=== PATIENT | male | born 1940 | race Caucasian/White ===

== ENCOUNTER 2016-09-13 12:44 | Outpatient (CLI) | payer MEDICARE | END 2016-09-13 12:45 | disposition home or self-care (01) | DX: N18.9 Chronic kidney disease, unspecified (principal); R20.9 Unspecified disturbances of skin sensation ==

== ENCOUNTER 2016-10-26 08:00 | Outpatient (CLI) | payer MEDICARE | END 2016-10-26 08:01 | disposition home or self-care (01) | DX: E53.8 Deficiency of other specified B group vitamins (principal) ==

== ENCOUNTER 2016-12-22 08:40 | Day surgery (SDC) | payer MEDICARE ==
[2016-12-22] MEDS ORDERED: LACTATED RINGERS 1,000 ML IV ONE (09:34)
[2016-12-22] MEDS ORDERED: MIDAZOLAM 2 MG/2 ML VIAL IVP ONE (10:20)
[2016-12-22] MEDS ORDERED: fentaNYL 100 MCG/2 ML VIAL IVP ONE (10:20)
[2016-12-22 11:16] VITALS: BP 100/60
== END 2016-12-22 08:41 | disposition home or self-care (01) ==
LOC: SDS 08:40
PROVIDERS: ATTEND Surgery
PROC: 0DBN8ZZ Excision of Sigmoid Colon, Via Natural or Artificial Opening Endoscopic (ICD-10-PCS; principal; 2016-12-22 10:00)
DX: K62.5 Hemorrhage of anus and rectum (principal); D12.5 Benign neoplasm of sigmoid colon; K62.1 Rectal polyp; K64.8 Other hemorrhoids; D64.9 Anemia, unspecified; I10 Essential (primary) hypertension; E78.5 Hyperlipidemia, unspecified; K21.9 Gastro-esophageal reflux disease without esophagitis
CPT/HCPCS: 45380; 88305; J7120

== ENCOUNTER 2017-01-31 07:54 | Outpatient (CLI) | payer MEDICARE | END 2017-01-31 07:55 | disposition home or self-care (01) | LOC: LAB.WCP 07:54 | PROVIDERS: ATTEND Urology | DX: R97.20 Elevated prostate specific antigen [PSA] (principal) | CPT/HCPCS: 36415; 84153 ==

== ENCOUNTER 2017-03-01 07:43 | Outpatient (CLI) | payer MEDICARE ==
[2017-03-01 12:42] LABS: BASOPHILS % (AUTO) 0.5 %; EOSINOPHILS # (AUTO) 0.2 10^3/uL (0.0-0.7); EOSINOPHILS % (AUTO) 2.2 %; HCT - HEMATOCRIT 33.8 % (42.0-52.0); HGB - HEMOGLOBIN 11.5 g/dL (14.0-18.0); LYMPHOCYTES # (AUTO) 2.1 10^3/uL (1.5-3.5); LYMPHOCYTES % (AUTO) 30.6 %; MEAN CORPUSCULAR HEMOGLOBIN 29.3 pg (27.0-31.0); MEAN CORPUSCULAR HGB CONC 33.8 g/dL (32.0-36.0); MEAN CORPUSCULAR VOLUME 86.6 fL (80.0-94.0); MEAN PLATELET VOLUME 8.4 fL (7.4-11.4); MONOCYTES # (AUTO) 0.5 10^3/uL (0.0-1.0); MONOCYTES % (AUTO) 7.1 %; NEUTROPHILS # (AUTO) 4.1 10^3/uL (1.5-6.6); NEUTROPHILS % (AUTO) 59.6 %; RED BLOOD COUNT 3.91 10^6/uL (4.70-6.10); RED CELL DISTRIBUTION WIDTH 14.1 % (12.0-15.0); UNCORRECTED WHITE BLOOD COUNT 6.8 x10^3/uL; WHITE BLOOD COUNT 6.8 x10^3/uL (4.8-10.8)
[2017-03-01 12:55] LABS: CALCIUM 8.4 mg/dL (8.5-10.3); CREATININE 1.5 mg/dL (0.6-1.2)
== END 2017-03-01 07:44 | disposition home or self-care (01) ==
LOC: LAB.WCP 07:43
PROVIDERS: ATTEND Physician Assistant Medical
DX: N18.9 Chronic kidney disease, unspecified (principal); E53.8 Deficiency of other specified B group vitamins; K62.5 Hemorrhage of anus and rectum
CPT/HCPCS: 36415; 80048; 82607; 85025

== ENCOUNTER 2017-03-28 09:24 | Outpatient (CLI) | payer MEDICARE ==
[2017-03-28 17:38] LABS: IRON 32 ug/dL (45-182); TOTAL IRON BINDING CAPACITY 354 ug/dL (250-450); TRANSFERRIN 253 mg/dL (180-329)
[2017-03-28 17:39] LABS: FERRITIN 9.7 ng/mL (23.9-336.2)
[2017-03-28 17:43] LABS: FOLATE 20.44 ng/mL (5.90 - >24.8)
== END 2017-03-28 09:25 | disposition home or self-care (01) ==
LOC: LAB.WCP 09:24
PROVIDERS: ATTEND Physician Assistant Medical
DX: D64.9 Anemia, unspecified (principal)
CPT/HCPCS: 36415; 82728; 82746; 83540; 84466

== ENCOUNTER 2017-05-26 14:51 | Outpatient (CLI) | payer MEDICARE ==
[2017-05-26 12:18] LABS: BASOPHILS % (AUTO) 0.7 %; EOSINOPHILS # (AUTO) 0.2 10^3/uL (0.0-0.7); EOSINOPHILS % (AUTO) 3.6 %; HCT - HEMATOCRIT 39.2 % (42.0-52.0); HGB - HEMOGLOBIN 13.3 g/dL (14.0-18.0); LYMPHOCYTES # (AUTO) 1.8 10^3/uL (1.5-3.5); MEAN CORPUSCULAR HEMOGLOBIN 28.8 pg (27.0-31.0); MEAN CORPUSCULAR HGB CONC 33.9 g/dL (32.0-36.0); MEAN CORPUSCULAR VOLUME 84.9 fL (80.0-94.0); MEAN PLATELET VOLUME 8.7 fL (7.4-11.4); MONOCYTES # (AUTO) 0.5 10^3/uL (0.0-1.0); MONOCYTES % (AUTO) 8.6 %; NEUTROPHILS # (AUTO) 3.2 10^3/uL (1.5-6.6); NEUTROPHILS % (AUTO) 56.1 %; NUCLEATED RED BLOOD CELLS AUTO 0.1 /100WBC; RED BLOOD COUNT 4.62 10^6/uL (4.70-6.10); RED CELL DISTRIBUTION WIDTH 14.6 % (12.0-15.0); UNCORRECTED WHITE BLOOD COUNT 5.7 x10^3/uL; WHITE BLOOD COUNT 5.7 x10^3/uL (4.8-10.8)
[2017-05-26 12:48] LABS: FERRITIN 28.5 ng/mL (23.9-336.2)
[2017-05-26 12:56] LABS: BILIRUBIN,TOTAL 0.2 mg/dL (0.2-1.0); BUN - BLOOD UREA NITROGEN 19 mg/dL (6-20); CALCIUM 8.2 mg/dL (8.5-10.3); CARBON DIOXIDE - CO2 24 mmol/L (21-32); CHLORIDE 109 mmol/L (101-111); CHOL/HDL RATIO 6.5 (<5.0); CHOLESTEROL 188 mg/dL; CREATININE 1.4 mg/dL (0.6-1.2); GFR - MDRD 50 (>89); GLUCOSE 100 mg/dL (70-100); HDL CHOLESTEROL 29 mg/dL; IRON 37 ug/dL (45-182); LDL/HDL RATIO 4.7 (<3.6); SODIUM 138 mmol/L (135-145); TOTAL IRON BINDING CAPACITY 277 ug/dL (250-450); TOTAL PROTEIN 6.7 g/dL (6.7-8.2); TRANSFERRIN 198 mg/dL (180-329); TRIGLYCERIDES 117 mg/dL; VLDL CHOLESTEROL 23 mg/dL
== END 2017-05-26 14:52 | disposition home or self-care (01) ==
LOC: LAB.WCP 14:51
PROVIDERS: ATTEND Physician Assistant Medical
DX: E78.5 Hyperlipidemia, unspecified (principal); D64.9 Anemia, unspecified
CPT/HCPCS: 36415; 80053; 80061; 82607; 82728; 83540; 84466; 85025

== ENCOUNTER 2017-08-03 08:00 | Outpatient (CLI) | payer MEDICARE ==
[2017-08-03 12:30] LABS: BASOPHILS % (AUTO) 0.6 %; EOSINOPHILS # (AUTO) 0.2 10^3/uL (0.0-0.7); EOSINOPHILS % (AUTO) 3.2 %; HGB - HEMOGLOBIN 13.3 g/dL (14.0-18.0); LYMPHOCYTES # (AUTO) 2.1 10^3/uL (1.5-3.5); LYMPHOCYTES % (AUTO) 29.7 %; MEAN CORPUSCULAR HEMOGLOBIN 28.9 pg (27.0-31.0); MEAN CORPUSCULAR HGB CONC 33.7 g/dL (32.0-36.0); MEAN CORPUSCULAR VOLUME 85.8 fL (80.0-94.0); MEAN PLATELET VOLUME 8.6 fL (7.4-11.4); MONOCYTES # (AUTO) 0.6 10^3/uL (0.0-1.0); MONOCYTES % (AUTO) 8.3 %; NEUTROPHILS # (AUTO) 4.2 10^3/uL (1.5-6.6); NEUTROPHILS % (AUTO) 58.2 %; PLT - PLATELET COUNT 212 10^3/uL (130-450); RED BLOOD COUNT 4.59 10^6/uL (4.70-6.10); RED CELL DISTRIBUTION WIDTH 14.3 % (12.0-15.0); WHITE BLOOD COUNT 7.1 x10^3/uL (4.8-10.8)
[2017-08-03 13:26] LABS: PSA FREE 1.93 ng/mL (0.16-2.81)
[2017-08-03 13:27] LABS: PSA TOTAL 8.44 ng/mL (0.000-2.000)
[2017-08-03 13:36] LABS: FERRITIN 39.1 ng/mL (23.9-336.2)
== END 2017-08-03 08:01 | disposition home or self-care (01) ==
LOC: LAB.WCP 08:00
PROVIDERS: ATTEND Physician Assistant Medical
DX: E53.8 Deficiency of other specified B group vitamins (principal); D64.9 Anemia, unspecified; R97.20 Elevated prostate specific antigen [PSA]
CPT/HCPCS: 36415; 82607; 82728; 84154; 85025

== ENCOUNTER 2018-01-17 08:00 | Outpatient (CLI) | payer MEDICARE ==
[2018-01-17 13:17] LABS: BASOPHILS % (AUTO) 0.7 %; EOSINOPHILS # (AUTO) 0.1 10^3/uL (0.0-0.7); EOSINOPHILS % (AUTO) 2.3 %; HGB - HEMOGLOBIN 12.4 g/dL (14.0-18.0); LYMPHOCYTES # (AUTO) 1.7 10^3/uL (1.5-3.5); LYMPHOCYTES % (AUTO) 30.7 %; MEAN CORPUSCULAR HEMOGLOBIN 28.3 pg (27.0-31.0); MEAN CORPUSCULAR HGB CONC 33.7 g/dL (32.0-36.0); MEAN CORPUSCULAR VOLUME 83.9 fL (80.0-94.0); MEAN PLATELET VOLUME 8.5 fL (7.4-11.4); MONOCYTES # (AUTO) 0.5 10^3/uL (0.0-1.0); MONOCYTES % (AUTO) 8.2 %; NEUTROPHILS # (AUTO) 3.3 10^3/uL (1.5-6.6); NEUTROPHILS % (AUTO) 58.1 %; PLT - PLATELET COUNT 203 10^3/uL (130-450); RED BLOOD COUNT 4.38 10^6/uL (4.70-6.10); RED CELL DISTRIBUTION WIDTH 13.5 % (12.0-15.0); WHITE BLOOD COUNT 5.6 x10^3/uL (4.8-10.8)
[2018-01-17 13:34] LABS: PSA FREE 1.828 ng/mL (0.16-2.81)
[2018-01-17 13:35] LABS: PSA TOTAL 6.68 ng/mL (0.000-2.000)
[2018-01-17 13:40] LABS: CALCIUM 8.7 mg/dL (8.5-10.3); CREATININE 1.3 mg/dL (0.6-1.2)
== END 2018-01-17 08:01 | disposition home or self-care (01) ==
LOC: LAB.WCP 08:00
PROVIDERS: ATTEND Physician Assistant Medical
DX: N18.9 Chronic kidney disease, unspecified (principal); E53.8 Deficiency of other specified B group vitamins; R97.20 Elevated prostate specific antigen [PSA]; D64.9 Anemia, unspecified
CPT/HCPCS: 36415; 80048; 82607; 84154; 85025

== ENCOUNTER 2018-03-08 07:27 | Outpatient (CLI) | payer MEDICARE ==
[2018-03-08 12:21] LABS: BASOPHILS % (AUTO) 0.5 %; EOSINOPHILS # (AUTO) 0.1 10^3/uL (0.0-0.7); HGB - HEMOGLOBIN 13.8 g/dL (14.0-18.0); LYMPHOCYTES # (AUTO) 1.8 10^3/uL (1.5-3.5); LYMPHOCYTES % (AUTO) 30.7 %; MEAN CORPUSCULAR HEMOGLOBIN 28.1 pg (27.0-31.0); MEAN CORPUSCULAR HGB CONC 33.3 g/dL (32.0-36.0); MEAN CORPUSCULAR VOLUME 84.5 fL (80.0-94.0); MEAN PLATELET VOLUME 8.1 fL (7.4-11.4); MONOCYTES # (AUTO) 0.5 10^3/uL (0.0-1.0); MONOCYTES % (AUTO) 8.5 %; NEUTROPHILS # (AUTO) 3.4 10^3/uL (1.5-6.6); NEUTROPHILS % (AUTO) 58.3 %; PLT - PLATELET COUNT 224 10^3/uL (130-450); RED CELL DISTRIBUTION WIDTH 15.6 % (12.0-15.0); WHITE BLOOD COUNT 5.8 x10^3/uL (4.8-10.8)
[2018-03-08 12:41] LABS: % IRON SATURATION 35 % (20-50); IRON 113 ug/dL (45-182); TOTAL IRON BINDING CAPACITY 323 ug/dL (250-450); TRANSFERRIN 231 mg/dL (180-329)
== END 2018-03-08 07:28 | disposition home or self-care (01) ==
LOC: LAB.WCP 07:27
PROVIDERS: ATTEND Physician Assistant Medical
DX: E55.9 Vitamin D deficiency, unspecified (principal); D64.9 Anemia, unspecified
CPT/HCPCS: 36415; 82306; 82607; 82728; 83540; 84466; 85025

== ENCOUNTER 2018-07-24 08:00 | Outpatient (CLI) | payer MEDICARE ==
[2018-07-24 12:31] LABS: BASOPHILS % (AUTO) 0.5 %; EOSINOPHILS # (AUTO) 0.2 10^3/uL (0.0-0.7); EOSINOPHILS % (AUTO) 2.3 %; HGB - HEMOGLOBIN 14.4 g/dL (14.0-18.0); LYMPHOCYTES # (AUTO) 2.1 10^3/uL (1.5-3.5); LYMPHOCYTES % (AUTO) 31.7 %; MEAN CORPUSCULAR HEMOGLOBIN 30.2 pg (27.0-31.0); MEAN CORPUSCULAR HGB CONC 34.4 g/dL (32.0-36.0); MEAN CORPUSCULAR VOLUME 87.7 fL (80.0-94.0); MEAN PLATELET VOLUME 8.4 fL (7.4-11.4); MONOCYTES # (AUTO) 0.6 10^3/uL (0.0-1.0); MONOCYTES % (AUTO) 8.5 %; NEUTROPHILS # (AUTO) 3.8 10^3/uL (1.5-6.6); PLT - PLATELET COUNT 236 10^3/uL (130-450); RED BLOOD COUNT 4.77 10^6/uL (4.70-6.10); RED CELL DISTRIBUTION WIDTH 13.6 % (12.0-15.0); WHITE BLOOD COUNT 6.7 x10^3/uL (4.8-10.8)
[2018-07-24 13:28] LABS: PSA FREE 1.77 ng/mL (0.16-2.81)
[2018-07-24 13:29] LABS: PSA TOTAL 6.98 ng/mL (0.000-2.000)
[2018-07-24 13:47] LABS: ALBUMIN 3.6 g/dL (3.2-5.5); ALBUMIN/GLOBULIN RATIO 1.1 (1.0-2.2); ALKALINE PHOSPHATASE 43 IU/L (42-121); ALT ALANINE AMINOTRANSFERASE 27 IU/L (10-60); AST ASPARTATE AMINOTRANSFERASE 16 IU/L (10-42); BILIRUBIN,TOTAL 0.7 mg/dL (0.2-1.0); BUN - BLOOD UREA NITROGEN 18 mg/dL (6-20); CALCIUM 8.4 mg/dL (8.5-10.3); CARBON DIOXIDE - CO2 26 mmol/L (21-32); CHLORIDE 106 mmol/L (101-111); CHOL/HDL RATIO 6.2 (<5.0); CHOLESTEROL 199 mg/dL; CREATININE 1.4 mg/dL (0.6-1.2); GFR - MDRD 49 (>89); GLUCOSE 113 mg/dL (70-100); HDL CHOLESTEROL 32 mg/dL; LDL CHOLESTEROL,CALCULATED 143 mg/dL; LDL/HDL RATIO 4.5 (<3.6); SODIUM 137 mmol/L (135-145); VLDL CHOLESTEROL 24 mg/dL
== END 2018-07-24 23:59 | disposition home or self-care (01) ==
LOC: LAB.WCP 08:00
PROVIDERS: ATTEND Physician Assistant Medical
DX: E78.5 Hyperlipidemia, unspecified (principal); R97.20 Elevated prostate specific antigen [PSA]; D64.9 Anemia, unspecified
CPT/HCPCS: 36415; 80053; 80061; 82607; 83721; 84153; 84154; 85025

== ENCOUNTER 2018-12-11 08:12 | Outpatient (CLI) | payer MEDICARE ==
[2018-12-11 13:01] LABS: ALBUMIN 3.7 g/dL (3.2-5.5); ALBUMIN/GLOBULIN RATIO 1.1 (1.0-2.2); ALKALINE PHOSPHATASE 47 IU/L (42-121); ALT ALANINE AMINOTRANSFERASE 17 IU/L (10-60); AST ASPARTATE AMINOTRANSFERASE 16 IU/L (10-42); BILIRUBIN,TOTAL 0.6 mg/dL (0.2-1.0); BUN - BLOOD UREA NITROGEN 14 mg/dL (6-20); CALCIUM 8.7 mg/dL (8.5-10.3); CARBON DIOXIDE - CO2 24 mmol/L (21-32); CHLORIDE 106 mmol/L (101-111); CHOL/HDL RATIO 6.6 (<5.0); CHOLESTEROL 191 mg/dL; CREATININE 1.3 mg/dL (0.6-1.2); GFR - MDRD 54 (>89); GLUCOSE 113 mg/dL (70-100); HDL CHOLESTEROL 29 mg/dL; LDL CHOLESTEROL,CALCULATED 125 mg/dL; LDL/HDL RATIO 4.3 (<3.6); SODIUM 139 mmol/L (135-145); VLDL CHOLESTEROL 37 mg/dL
== END 2018-12-11 08:13 | disposition home or self-care (01) ==
LOC: LAB.WCP 08:12
PROVIDERS: ATTEND Physician Assistant Medical
DX: E78.5 Hyperlipidemia, unspecified (principal)
CPT/HCPCS: 36415; 80053; 80061; 83721

== ENCOUNTER → 2020-03-19 | Outpatient (CLI) | payer MEDICARE ==
[2020-03-19 12:23] LABS: BASOPHILS % (AUTO) 0.5 %; EOSINOPHILS # (AUTO) 0.1 10^3/uL (0.0-0.7); EOSINOPHILS % (AUTO) 1.6 %; LYMPHOCYTES % (AUTO) 32.2 %; MEAN CORPUSCULAR HEMOGLOBIN 29.1 pg (27.0-31.0); MEAN CORPUSCULAR HGB CONC 32.1 g/dL (32.0-36.0); MEAN CORPUSCULAR VOLUME 90.7 fL (80.0-94.0); MEAN PLATELET VOLUME 10.2 fL (7.4-11.4); MONOCYTES # (AUTO) 0.5 10^3/uL (0.0-1.0); MONOCYTES % (AUTO) 8.4 %; NEUTROPHILS # (AUTO) 3.6 10^3/uL (1.5-6.6); PLT - PLATELET COUNT 240 10^3/uL (130-450); RED BLOOD COUNT 5.16 10^6/uL (4.70-6.10); RED CELL DISTRIBUTION WIDTH 13.1 % (12.0-15.0); WHITE BLOOD COUNT 6.2 x10^3/uL (4.8-10.8)
[2020-03-19 12:39] LABS: PSA FREE 2.24 ng/mL (0.16-2.81)
[2020-03-19 12:40] LABS: PSA TOTAL 8.12 ng/mL (0.000-2.000)
[2020-03-19 13:07] LABS: FERRITIN 34.4 ng/mL (23.9-336.2)
[2020-03-19 13:18] LABS: % IRON SATURATION 32 % (20-50); ALBUMIN 3.8 g/dL (3.2-5.5); ALBUMIN/GLOBULIN RATIO 1.2 (1.0-2.2); ALKALINE PHOSPHATASE 57 IU/L (42-121); ALT ALANINE AMINOTRANSFERASE 18 IU/L (10-60); AST ASPARTATE AMINOTRANSFERASE 14 IU/L (10-42); BILIRUBIN,TOTAL 0.5 mg/dL (0.2-1.0); BUN - BLOOD UREA NITROGEN 15 mg/dL (6-20); CALCIUM 8.8 mg/dL (8.5-10.3); CARBON DIOXIDE - CO2 27 mmol/L (21-32); CHLORIDE 105 mmol/L (101-111); CHOL/HDL RATIO 6.3 (<5.0); CHOLESTEROL 233 mg/dL; CREATININE 1.3 mg/dL (0.6-1.2); GLUCOSE 103 mg/dL (70-100); HDL CHOLESTEROL 37 mg/dL; IRON 96 ug/dL (45-182); LDL CHOLESTEROL,CALCULATED 160 mg/dL; LDL/HDL RATIO 4.3 (<3.6); SODIUM 138 mmol/L (135-145); TOTAL IRON BINDING CAPACITY 302 ug/dL (250-450); TOTAL PROTEIN 7.1 g/dL (6.7-8.2); TRANSFERRIN 216 mg/dL (180-329); VLDL CHOLESTEROL 36 mg/dL
== END ==
LOC: LAB.WCP 09:17
PROVIDERS: ATTEND Physician Assistant Medical
DX: R73.9 Hyperglycemia, unspecified (principal); I10 Essential (primary) hypertension; E78.5 Hyperlipidemia, unspecified; E53.8 Deficiency of other specified B group vitamins; D64.9 Anemia, unspecified; R97.20 Elevated prostate specific antigen [PSA]; R20.9 Unspecified disturbances of skin sensation; K21.9 Gastro-esophageal reflux disease without esophagitis
CPT/HCPCS: 36415; 80053; 80061; 82607; 82728; 83540; 83721; 84153; 84154; 84443; 84466; 85025